=== PATIENT | female | born 1970 | race Caucasian/White ===

== ENCOUNTER 2016-11-14 15:02 | Emergency (ER) | payer OTHER ==
[2016-11-14 15:05] VITALS: BP 146/86; PULSE 84; RESP 24; TEMP 98; O2SAT 96
--- NOTE | 2016-11-14 15:28 | PD ---
HPI Chief Complaint: Pain: Acute or Chronic Time Seen by Provider: 15:28 Travel History International Travel<30 days: No Contact w/Intl Traveler<30days: No Traveled to known affect area: No History of Present Illness HPI 46-year-old female presents to the emergency department requesting a prescription refill on diclofenac for her chronic left hip pain 8 years. She says the diclofenac helps her pain tremendously and she has not been able to take in a week and half because she's been out of her prescription. She is homeless and has been sleeping on the ground and a lot of walking which is aggravated her hip. She does have a history of arthritis in her left hip and left sided sciatica. She denies new recent injury. Denies paresthesias, loss of sensation, decreased range of motion, decreased strength to the affected extremity. Patient is ambulatory with a limp to the left extremity. She denies fever, chills, nausea, vomiting. She says she does have an appointment with the [facility] next Wednesday. No known allergies. No other modifying factors or associated signs and symptoms. PFSH Past Medical History ?: Not Social History Tobacco Use: No Allergies-Medications (Allergen,Severity, Reaction): Coded Allergies: No Known Allergies (Unverified , 11/14/16) Reported Meds & Prescriptions Reported Meds & Active Scripts Active Diclofenac Sodium DR (Diclofenac Sodium) 75 Mg Tabdr 75 Mg PO BID PRN 10 Days Review of Systems Except as stated in HPI: all other systems reviewed are Neg Physical Exam Narrative GENERAL: Well-nourished, well-developed female patient, in no acute distress SKIN: Warm and dry. HEAD: Atraumatic. Normocephalic. EYES: Pupils equal and round. No scleral icterus. No injection or drainage. ENT: Mucosa pink and moist. Airway patent. NECK: Trachea midline. CARDIOVASCULAR: Regular rate. RESPIRATORY: No accessory muscle use. GASTROINTESTINAL: Round. MUSCULOSKELETAL: Left hip with full range of motion; no erythema, edema, ecchymosis; tenderness on palpation to the lateral aspect and to the left lower iliosacral area of the lower back; no tenderness on abduction; no obvious deformity; no leg length discrepancy. Left lower extremity is supple and non- tense with 2+ pedal pulse and sensory intact and without erythema or edema. No obvious deformities. No cyanosis. No edema. NEUROLOGICAL: Awake and alert. Oriented 3. No obvious cranial nerve deficits. Motor grossly within normal limits. Normal speech. PSYCHIATRIC: Appropriate mood and affect; insight and judgment normal. Data Data Last Documented VS Vital Signs Date Time Temp Pulse Resp B/P Pulse Ox O2 Delivery O2 Flow Rate FiO2 11/14/16 15:05 98.0 84 24 146/86 96 Room Air Orders Diclofenac (Helen Nolasco) (11/14/16 15:30) [facility] Medical Decision Making Medical Screen Exam Complete: Yes Emergency Medical Condition: Yes Medical Record Reviewed: Yes Differential Diagnosis Medication refill, chronic left hip pain, malingering, medical clearance Narrative Course 46-year-old female with chronic left hip pain Requesting medication refill on diclofenac. She has a appointment with the [facility] next Wednesday. Diclofenac administered in the ear. Diclofenac prescribed for home. Patient verbalizes understanding and agreement with treatment plan. Patient is medically cleared and stable for discharge. Discussed reasons to return to the emergency department. Instructed patient to follow up with primary care provider. Patient agrees with treatment plan. The patients vital signs are stable and the patient is stable for outpatient follow-up and treatment. Patient discharged home, stable and in no acute distress. Diagnosis Primary Impression: Medication refill Additional Impression: Chronic left hip pain Referrals: Primary Care Physician Patient Instructions: General Instructions, Hip Pain (ED) Additional Instructions: Take medications as prescribed Follow-up with primary care provider Follow-up with orthopedic Return to the emergency department immediately with worsening of symptoms Med/Other Pt SpecificInfo: Prescription(s) given Scripts Diclofenac Sodium DR 75 Mg Tabdr75 Mg PO BID PRN (PAIN SCALE 1 TO 10) 10 Days Ref 0 Prov:Jessie Ross 11/14/16 Disposition: 01 DISCHARGE HOME Condition: Stable Jessie Ross Nov 14, 2016 15:28
[2016-11-14] MEDS ORDERED: DICLOFENAC SODIUM 75 MG DELAYED RELEASE TAB PO ONE (15:30)
[2016-11-14] MEDS ORDERED: DICL75TA PO (15:34)
[2016-11-18] MEDS ORDERED: BUPR150CR PO (09:56)
[2016-11-18] MEDS ORDERED: METH125I2 IM (10:15)
[2016-11-18] MEDS ORDERED: KETO60IN6 IM (10:15)
[2016-11-18] MEDS ORDERED: DICL75TA PO (10:19)
== END 2016-11-14 16:22 | disposition home or self-care (01) ==
LOC: NEPK 15:02
DX: G89.29 Other chronic pain (principal); M25.552 Pain in left hip; Z59.0 Homelessness; Z79.899 Other long term (current) drug therapy
CPT/HCPCS: 99281

== ENCOUNTER 2017-04-14 13:35 | Emergency (ER) | payer OTHER ==
[~2017-04-14] VITALS: Ht 175.3 cm; Wt 65.0 kg
[~2017-04-14 13:35] MED LIST: BUPR150CR PO; DICL75TA PO
[2017-04-14 13:36] VITALS: BP 142/75; PULSE 82; RESP 28; TEMP 97.9; O2SAT 93
[2017-04-14 13:56] VITALS: O2SAT 95
[2017-04-14] MEDS ORDERED: SERO25TA PO (13:56)
[2017-04-14] MEDS: RESP: ALBUTEROL 2.5 MG/IPRATROPIUM 0.5 MG NEB (SCH) INH (14:00)
[2017-04-14] MEDS ORDERED: methylPREDNISolone SOD SUCC 125 MG/2 ML VIAL IVP ONE (14:00)
[2017-04-14] MEDS ORDERED: RESP: LIDOCAINE HCL 4% PF 5 ML NEB NEB ONE (14:00)
[2017-04-14] MEDS ORDERED: SODIUM CHLORIDE 0.9% FLUSH 10 ML FLUSH IVF PRN (14:00)
--- NOTE | 2017-04-14 14:00 | PD ---
HPI Chief Complaint: Respiratory Symptoms Time Seen by Provider: 13:51 Travel History International Travel<30 days: No Contact w/Intl Traveler<30days: No Traveled to known affect area: No History of Present Illness HPI The patient is a 46-year-old female who presents to the emergency department for shortness of breath. The patient notes a 2 to three-day history of shortness of breath with increasing cough. The patient notes a dry and nonproductive cough for the last 2-3 days despite using [id number] Mucinex. The patient does note shortness of breath with wheezing, consistent with previous bronchitis exacerbations. The patient does have a history of tobacco use of one pack of cigarettes per day, denies any known history of COPD. The patient denies any chest pain, history of congestive heart failure, or history of pulmonary embolism/DVT. The patient denies any recent hospitalizations, surgeries, or prolonged travel last 3 months. She denies any lower extremity edema. She does complain of subjective fever without chills or sweats. Symptoms are moderate, no known exacerbating or alleviating factors and consistent with previous bronchitis exacerbations. PFSH Past Medical History ADD: Yes Depression: Yes Diminished Hearing: No ?: Not Menopausal: Yes Past Surgical History Surgical History: No Previous Surgery Social History Alcohol Use: Yes (rarely ) Tobacco Use: Yes (1/2 ppd) Substance Use: No Allergies-Medications (Allergen,Severity, Reaction): Coded Allergies: No Known Allergies (Unverified , 11/14/16) Reported Meds & Prescriptions Reported Meds & Active Scripts Active Reported Seroquel (Quetiapine Fumarate) 25 Mg Tab 25 Mg PO BID Wellbutrin SR 12 HR (Bupropion HCl) 150 Mg Tab 400 Mg PO Q12HR Review of Systems Except as stated in HPI: all other systems reviewed are Neg General / Constitutional: Positive: Fever (subjective) HENT: No: Lightheadedness Cardiovascular: No: Chest Pain or Discomfort Respiratory: Positive: Cough, Shortness of Breath, Wheezing Gastrointestinal: No: Nausea, Vomiting, Abdominal Pain Musculoskeletal: No: Edema Neurologic: No: Dizziness Physical Exam Narrative GENERAL: Awake, alert, pleasant 46-year-old female who appears her stated age and is in no acute respiratory distress. SKIN: Focused skin assessment warm/dry. HEAD: Atraumatic. Normocephalic. EYES: Pupils equal and round. No scleral icterus. No injection or drainage. ENT: No nasal bleeding or discharge. Mucous membranes pink and moist. NECK: Trachea midline. No JVD. CARDIOVASCULAR: Regular rate and rhythm. No murmur appreciated. RESPIRATORY: Mild tachypnea with a respiratory rate of 22. Diffuse wheezing on exam. GASTROINTESTINAL: Abdomen soft, non-tender, nondistended. No rebound tenderness. MUSCULOSKELETAL: No obvious deformities. No clubbing. No cyanosis. No edema. Calves are soft bilaterally. Negative Homans sign. NEUROLOGICAL: Awake and alert. No obvious cranial nerve deficits. Motor grossly within normal limits. Normal speech. PSYCHIATRIC: Appropriate mood and affect; insight and judgment normal. Data Data Last Documented VS Vital Signs Date Time Temp Pulse Resp B/P (MAP) Pulse Ox O2 Delivery O2 Flow Rate FiO2 04/14/17 13:56 95 Room Air 04/14/17 13:36 97.9 82 28 Orders Orders Iv Access Insert/Monitor (04/14/17 13:51) Ecg Monitoring (04/14/17 13:51) Oximetry (04/14/17 13:51) Oxygen Administration (04/14/17 13:51) Chest, Single Ap (04/14/17 13:51) Sodium Chloride 0.9% Flush (Ns Flush) (04/14/17 14:00) Methylprednisolone So Succ Inj (Solumedr (04/14/17 14:00) Albuterol-Ipratropium Neb (Duoneb Neb) (04/14/17 14:00) Lidocaine Pf 4% Neb (Lidocaine Pf 4% Neb (04/14/17 14:00) Albuterol Hfa Inh (Proair Hfa Inh) (04/14/17 15:45) MDM Medical Decision Making Medical Screen Exam Complete: Yes Emergency Medical Condition: Yes Medical Record Reviewed: Yes Interpretation(s) Chest x-ray reveals no acute cardiopulmonary process. Differential Diagnosis Differential diagnosis includes bronchitis, COPD exacerbation, pneumonia, reactive airway disease, URI, viral syndrome, pleural effusion, congestive heart failure, pulmonary embolism. Narrative Course IV was established, the patient is placed on cardiac telemetry monitoring and continuous pulse oximetry monitoring. The patient was administered Solu-Medrol 125 mg intravenously and duo nebs 3 with respiratory lidocaine. The patient's chest x-ray was unremarkable, no evidence of pneumonia. The patient was reevaluated at 3:30 PM, she still had mild wheezing, however, symptoms had significantly improved. She was administered 2 puffs of albuterol inhaler, was discharged home with inhaler, prednisone, Bactrim, and advised to stop smoking. She is advised to return if symptoms worsen or progress. Diagnosis Primary Impression: Bronchitis Patient Instructions: General Instructions Additional Instructions: Medications as directed. Follow-up with your primary physician. Return if symptoms worsen or progress. Stop smoking. Med/Other Pt SpecificInfo: Prescription(s) given Scripts Albuterol 18 GM Inh (Ventolin Hfa 18 GM Inh) 90 Mcg/Act Aer 2 PUFF INH Q4H Y for SHORTNESS OF BREATH, #1 INHALER 0 Refills Prov: Edison Cheatham MD 04/14/17 Prednisone (Deltasone) 20 Mg Tab 40 MG PO DAILY for 4 Days, TAB 0 Refills Prov: Edison Cheatham MD 04/14/17 Sulfamethoxazole-Trimethoprim (Bactrim DS) 800-160 Mg Tab 1 TAB PO BID for Infection, #14 TAB 0 Refills Prov: Edison Cheatham MD 04/14/17 Disposition: 01 DISCHARGE HOME Condition: Stable Edison Cheatham MD Apr 14, 2017 14:00
--- NOTE | 2017-04-14 14:33 | RADRPT ---
EXAM DATE/TIME: 04/14/2017 13:58 [facility] COMPARISON: No previous studies available for comparison. INDICATIONS : Short of breath with wheezing x2 days. MEDICAL HISTORY : Asthma, bronchitis SURGICAL HISTORY : None. ENCOUNTER: Initial ACUITY: 2 days PAIN SCORE: 3/10 LOCATION: Bilateral chest FINDINGS: A single view of the chest demonstrates the lungs to be symmetrically aerated without evidence of mas s, infiltrate or effusion. The cardiomediastinal contours are unremarkable. Osseous structures are intact. CONCLUSION: No acute cardiopulmonary process. Rufino Phillips MD on April 14, 2017 at 14:31 Board Certified Radiologist. This report was verified electronically.
[2017-04-14] MEDS ORDERED: VENTAER INH (15:34)
[2017-04-14] MEDS ORDERED: PRED-503 PO (15:34)
[2017-04-14] MEDS ORDERED: BACT800T5 PO (15:34)
[2017-04-14] MEDS ORDERED: ALBUTEROL SULFATE 90 MCG/ACT HFA 8 GM INHALER INH ONE (15:45)
== END 2017-04-14 16:03 | disposition home or self-care (01) ==
LOC: NEPD 13:35
DX: J40 Bronchitis, not specified as acute or chronic (principal); F32.9 Major depressive disorder, single episode, unspecified; F17.200 Nicotine dependence, unspecified, uncomplicated
CPT/HCPCS: 71010; 94640; 94664; 96374; 99285; J2930

== ENCOUNTER 2017-09-26 22:28 | Emergency (ER) | payer OTHER ==
[~2017-09-26] VITALS: Ht 175.3 cm; Wt 65.0 kg
[~2017-09-26 22:28] MED LIST changes: +BACT800T5 PO; -DICL75TA PO; +PRED-503 PO; +SERO25TA PO; +VENTAER INH
[2017-09-26 22:32] VITALS: BP 130/60; PULSE 90; RESP 24; TEMP 97.9; O2SAT 96
[2017-09-26] MEDS: RESP: ALBUTEROL 2.5 MG/IPRATROPIUM 0.5 MG NEB (SCH) INH (22:59)
[2017-09-26] MEDS ORDERED: DEXAMETHASONE SOD PHOS 4 MG/ML VIAL IM ONE (23:00)
[2017-09-26] MEDS ORDERED: PRED20 PO (23:01)
[2017-09-26] MEDS ORDERED: ZITHTAB PO (23:01)
[2017-09-26] MEDS ORDERED: VENTAER INH (23:01)
--- NOTE | 2017-09-26 23:01 | PD ---
HPI Chief Complaint: Respiratory Symptoms Time Seen by Provider: 22:46 Travel History International Travel<30 days: No Contact w/Intl Traveler<30days: No Traveled to known affect area: No History of Present Illness HPI 47-year-old female complains of coughing congestion wheezing and shortness of breath. Patient states the symptoms started several days ago. Patient states the cough is persistent and productive. Patient states that she has nasal congestion and cloudy nasal discharge. Patient denies any fever chills. Patient denies any chest pain. Patient is a smoker. PFSH Past Medical History ADD: Yes Depression: Yes Diminished Hearing: No Tetanus Vaccination: < 5 Years Influenza Vaccination: No ?: Not LMP: menapause Menopausal: Yes Past Surgical History Surgical History: No Previous Surgery Social History Alcohol Use: Yes (rarely ) Tobacco Use: Yes (1/2 ppd) Substance Use: No Allergies-Medications (Allergen,Severity, Reaction): Coded Allergies: No Known Allergies (Unverified , 11/14/16) Reported Meds & Prescriptions Reported Meds & Active Scripts Active Reported Seroquel (Quetiapine Fumarate) 25 Mg Tab 25 Mg PO BID Wellbutrin SR 12 HR (Bupropion HCl) 150 Mg Tab 400 Mg PO Q12HR Review of Systems General / Constitutional: No: Fever Eyes: No: Visual changes HENT: No: Headaches Cardiovascular: No: Chest Pain or Discomfort Respiratory: Positive: Cough, Shortness of Breath, Wheezing Gastrointestinal: No: Abdominal Pain Genitourinary: No: Dysuria Musculoskeletal: No: Pain Skin: No Rash Neurologic: No: Weakness Psychiatric: No: Depression Endocrine: No: Polydipsia Hematologic/Lymphatic: No: Easy Bruising Physical Exam Narrative GENERAL: Well-nourished, well-developed patient. SKIN: Focused skin assessment warm/dry. HEAD: Normocephalic. EYES: No scleral icterus. No injection or drainage. TM: Clear. Throat: Nonerythematous. NECK: Supple, trachea midline. No JVD or lymphadenopathy. CARDIOVASCULAR: Regular rate and rhythm without murmurs, gallops, or rubs. RESPIRATORY: Breath sounds equal bilaterally. No accessory muscle use. Patient has moderate expiratory wheezes bilaterally. Few rhonchi at the bases. GASTROINTESTINAL: Abdomen soft, non-tender, nondistended. MUSCULOSKELETAL: No cyanosis, or edema. BACK: Nontender without obvious deformity. No CVA tenderness. Neurologic exam normal. Data Data Last Documented VS Vital Signs Date Time Temp Pulse Resp B/P (MAP) Pulse Ox O2 Delivery O2 Flow Rate FiO2 09/26/17 22:32 97.9 90 24 130/60 (83) 96 Room Air Orders Orders Albuterol-Ipratropium Neb (Duoneb Neb) (09/26/17 23:00) Dexamethasone Inj (Decadron Inj) (09/26/17 23:00) [facility] Medical Decision Making Medical Screen Exam Complete: Yes Emergency Medical Condition: Yes Differential Diagnosis Differential diagnosis including URI, bronchitis, pneumonia, reactive airway disease. Narrative Course 47-year-old female with coughing congestion and wheezing and shortness of breath. Patient is a smoker. Albuterol with Atrovent unit dose treatment 2. Decadron 8 mg IM. Diagnosis Primary Impression: Bronchitis Additional Impression: Reactive airway disease Qualified Codes: J45.21 - Mild intermittent asthma with (acute) exacerbation Patient Instructions: General Instructions Additional Instructions: Albuterol inhaler as directed. Take medications as directed. Follow-up with personal physician. Return if worse. Advised patient to stop smoking. Med/Other Pt SpecificInfo: Prescription(s) given Scripts Azithromycin (Zithromax Z-Martinez) 250 Mg Dspk 250 MG PO DIRECTED for Infection, #1 DSPK 0 Refills 500 MG (2 tabs) day 1, then 1 tab days 2-5. Prov: Denys Smalls MD 09/26/17 Prednisone (Prednisone) 20 Mg Tab 20 MG PO BID, #10 TAB 0 Refills Prov: Denys Smalls MD 09/26/17 Albuterol 18 GM Inh (Ventolin Hfa 18 GM Inh) 90 Mcg/Act Aer 2 PUFF INH Q4-6H Y for SHORTNESS OF BREATH, #1 INHALER 0 Refills Prov: Denys Smalls MD 09/26/17 Disposition: 01 DISCHARGE HOME Condition: Stable Denys Smalls MD Sep 26, 2017 23:01
== END 2017-09-26 23:30 | disposition home or self-care (01) ==
LOC: NEPD 22:28
DX: J45.21 Mild intermittent asthma with (acute) exacerbation (principal); F17.200 Nicotine dependence, unspecified, uncomplicated
CPT/HCPCS: 94640; 94664; 96372; 99284; J1100